=== PATIENT | female | born 1965 | race Caucasian/White ===

== ENCOUNTER 2017-01-22 09:09 | Emergency (ER) | payer OTHER ==
--- NOTE | 2017-01-22 10:41 | DIAGNOSTIC IMAGING REPORT ---
PROCEDURE: XR KNEE 4 VIEWS - LEFT INDICATION: TRAUMA/INJURY TECHNIQUE: Four views. COMPARISON: None. FINDINGS: No fracture or dislocation. There is chondrocalcinosis. IMPRESSION: 1. No fracture or dislocation. 2. Chondrocalcinosis.
--- NOTE | 2017-01-22 10:43 | ED NURSING NOTES ---
Clinical Report - Nurses [facility] [address] [place] [address] 01/22/2017 9:08 [id number] TRIAGE Triage time 09:10. Acuity: LEVEL 3. Chief Complaint: INJURY TO LEFT KNEE. 09:19 01/22/17. SEPSIS SCREEN: Sepsis Screen. Negative (no infection suspected/documented). INDY COMA SCORE: [place] Coma Scale: 15- eyes open spontaneously (4); best verbal response- oriented x 4 (5); best motor response- obeys commands (6). --09:19 Rodo Rubalcava R.N. 09:12 01/22/17. BP: 138/82. HR: 83. RR: 20. O2 saturation: 98% on room air. Temp: 98.1 F (oral). Pain level now: 09/08. --09:19 Rodo Rubalcava R.N. Weight: 72.5 kg stated. Height/Length: 67 inches Per Patient. BMI: 25.1. --09:17 Rodo Rubalcava R.N. Medications Synthroid Oral. --09:13 Rodo Rubalcava R.N. OxyCONTIN Oral. --09:13 Rodo Rubalcava R.N. OxyCODONE HCl Oral. --09:13 Rodo Rubalcava R.N. Allergies No Known Drug Allergy. --09:15 Rodo Rubalcava R.N. History Arrived by EMS. Historian: EMS and patient. This occurred yesterday (Fell and twisted her left knee yesterday while raking leaves.). 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 SOCIAL HX: Heavy tobacco smoker (cigarette)- 1 pack per day. History of occasional drug use: marijuana. No alcohol use. ABUSE ASSESSMENT: No report of abuse. --09:19 Rodo Rubalcava R.N. PROBLEMS: Chronic back pain. --09:15 Rodo Rubalcava R.N. ADDITIONAL SURGERIES: Back Surgery. --09:15 Rodo Rubalcava R.N. Interventions ID band on patient. To treatment room. --09:19 Rodo Rubalcava R.N. PHYSICAL ASSESSMENT 09:23 01/22/17. To room via stretcher. GENERAL / NEURO / PSYCH: Oriented X 4. Alert. Appears in pain. EXTREMITIES: Extremities do not exhibit normal ROM. Capillary refill is less than 2 seconds in the extremities. Extremity pulses are within normal limits. Abnormal gait. She was unable to bear weight. Neuro-vascular status intact to the extremity. Left knee: tenderness and swelling. Limited ROM. SKIN: Skin intact. Skin is warm and dry. --09:23 Rodo Rubalcava R.N. NURSING PROGRESS NOTES 09:24 01/22/17. Cold pack applied. Extremity elevated. Neuro-vascular extremity check distal to injury: pulses intact, moderate edema present, capillary refill <2 seconds and sensation intact. Patient gowned. Reassurance given. Two patient identifiers checked. Call light placed in reach. Bed placed in lowest position. Brakes of bed on. Patient ready for evaluation- chart flagged. --09:24 Rodo Rubalcava R.N. ( Patient requested commode to urinate and only wanted daughters help with this). --09:59 Migdalia Guerra R.N. 10:07 01/22/2017 Toradol (Ketorolac Tromethamine) IM 60 mg given. Given in the right deltoid. Allergies verified and confirmed 5 rights. --10:13 Migdalia Guerra R.N. 10:08 01/22/2017 Dilaudid (HYDROmorphone HCl PF) IM 1 mg given. Given in the left deltoid. Allergies verified, confirmed 5 rights and sedative warning given to the patient. --10:13 Migdalia Guerra R.N. 10:14 01/22/17. Patient transported to radiology by stretcher with tech. (10:13 Jan 22 2017). --10:14 Migdalia Guerra R.N. Patient returned from radiology by stretcher. (10:30 Jan 22 2017). --10:31 Migdalia Guerra R.N. DISPOSITION / DISCHARGE <<STRICKEN ENTRY-- 11:03 01/22/2017 Toradol IM Response: pain is improving. Symptoms have improved the patient feels better. --11:03 Migdalia Guerra R.N. --END STRIKE>> Other. --11:04 Migdalia Guerra R.N. 11:03 01/22/2017 Dilaudid IM Response: no adverse reaction pain is improving. Symptoms have improved the patient feels better. --11:03 Migdalia Guerra R.N. 11:03 01/22/2017 Toradol IM Response: no adverse reaction pain is improving. Symptoms have improved the patient feels better. --11:04 Migdalia Guerra R.N. 11:07 01/22/17. Condition at departure: improved. No learning barriers present. Discharge instructions provided and reviewed with the patient (roommate). Reviewed crutch walking instructions (Immobilizer left knee and ice). Activity restrictions reviewed (may bear weight as tolerated). Patient verbalized understanding. Written instructions provided in Senegalese. ( Gino and Hawa placed Left knee Immobilizer per orders. Patient given crutches). The patient was discharged by the physician. She was discharged home and accompanied by cylinder press operator. She left the Emergency Department in a wheelchair on crutches and via private vehicle. Home Coordinator driving. --11:07 Migdalia Guerra R.N. 10:58 01/22/17. BP: 121/71 (regular adult cuff) taken on the left arm, while sitting. HR: 78 (regular). RR: 18 (regular). O2 saturation: 100% on room air. Temp: 98.3 F (oral). Pain level now: 07/09. --11:07 Migdalia Guerra R.N. Departure time: 11:10 Jan 22 2017. --11:12 Migdalia Guerra R.N. Locked/Released at 01/22/2017 11:42 by Migdalia Guerra R.N.
--- NOTE | 2017-01-22 10:43 | ED ORDER SUMMARY ---
..... Patient: MADALYN CHOE OrderSheet [facility] VisitID: [id number] [address] [place] [address] 51y, F Registration Date/Time: 01/22/2017 ORDER SHEET Weight: 72.5 kg (stated) Allergies: No Known Drug Allergy GENERAL ORDERS: Knee 4V Left Urgent (09:57 01/22/2017 Blanca LANDON) (Ack 9:59 Lashonda) (10:27 Lashonda) Knee Immobilizer (10:40 01/22/2017 Blanca LANDON) (11:03 Yancy R.N.) Crutches (10:40 01/22/2017 Blanca LANDON) (11:03 Yancy R.N.) MEDICATION ORDERS: Toradol IM 60 mg (NOW) (09:56 01/22/2017 Blanca LANDON) (10:13 Krzysztofs R.N.) Dilaudid IM 1 mg (HIGH ALERT MEDICATION, NOW) (09:56 01/22/2017 Blanca LANDON) (10:13 Yancy R.N.) IV FLUIDS: ORDER SHEET NOTES: [Electronically signed by Migdalia Guerra R.N. (11:42 01/22/2017)] [Electronically signed by Charisma Reid MD (06:21 01/26/2017)] [Electronically locked/signed by Migdalia Guerra R.N. (11:42 01/22/2017)]
--- NOTE | 2017-01-22 10:43 | ED ORDER SUMMARY ---
..... Patient: MADALYN CHOE OrderSheet [facility] VisitID: [id number] [address] [place] [address] 51y, F Registration Date/Time: 01/22/2017 ORDER SHEET Weight: 72.5 kg (stated) Allergies: No Known Drug Allergy GENERAL ORDERS: Knee 4V Left Urgent (09:57 01/22/2017 Blanca LANDON) (Ack 9:59 Lashonda) (10:27 Lashonda) Knee Immobilizer (10:40 01/22/2017 Blanca LANDON) (11:03 Yancy R.N.) Crutches (10:40 01/22/2017 Blanca LANDON) (11:03 Yancy R.N.) MEDICATION ORDERS: Toradol IM 60 mg (NOW) (09:56 01/22/2017 Blanca LANDON) (10:13 Krzysztofs R.N.) Dilaudid IM 1 mg (HIGH ALERT MEDICATION, NOW) (09:56 01/22/2017 Blanca LANDON) (10:13 Yancy R.N.) IV FLUIDS: ORDER SHEET NOTES: [Electronically signed by Migdalia Guerra R.N. (11:42 01/22/2017)] [Electronically signed by Charisma Reid MD (06:21 01/26/2017)] [Electronically locked/signed by Migdalia Guerra R.N. (11:42 01/22/2017)]
--- NOTE | 2017-01-22 10:43 | ED NURSING NOTES ---
Clinical Report - Nurses [facility] [address] [place] [address] 01/22/2017 9:08 [id number] Triage time 09:10. Acuity: LEVEL 3. Chief Complaint: INJURY TO LEFT KNEE. 09:19 01/22/17. SEPSIS SCREEN: Sepsis Screen. Negative (no infection suspected/documented). INDY COMA SCORE: [place] Coma Scale: 15- eyes open spontaneously (4); best verbal response- oriented x 4 (5); best motor response- obeys commands (6). --09:19 Rodo Rubalcava R.N. 09:12 01/22/17. BP: 138/82. HR: 83. RR: 20. O2 saturation: 98% on room air. Temp: 98.1 F (oral). Pain level now: 09/08. --09:19 Rodo Rubalcava R.N. Weight: 72.5 kg stated. Height/Length: 67 inches Per Patient. BMI: 25.1. --09:17 Rodo Rubalcava R.N. Medications Synthroid Oral. --09:13 Rodo Rubalcava R.N. OxyCONTIN Oral. --09:13 Rodo Rubalcava R.N. OxyCODONE HCl Oral. --09:13 Rodo Rubaclava R.N. Allergies No Known Drug Allergy. --09:15 Rodo Rubalcava R.N. History Arrived by EMS. Historian: EMS and patient. This occurred yesterday (Fell and twisted her left knee yesterday while raking leaves.). 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 SOCIAL HX: Heavy tobacco smoker (cigarette)- 1 pack per day. History of occasional drug use: marijuana. No alcohol use. ABUSE ASSESSMENT: No report of abuse. --09:19 Rodo Rubalcava R.N. PROBLEMS: Chronic back pain. --09:15 Rodo Rubalcava R.N. ADDITIONAL SURGERIES: Back Surgery. --09:15 Rodo Rubalcava R.N. Interventions ID band on patient. To treatment room. --09:19 Rodo Rubalcava R.N. PHYSICAL ASSESSMENT 09:23 01/22/17. To room via stretcher. GENERAL / NEURO / PSYCH: Oriented X 4. Alert. Appears in pain. EXTREMITIES: Extremities do not exhibit normal ROM. Capillary refill is less than 2 seconds in the extremities. Extremity pulses are within normal limits. Abnormal gait. She was unable to bear weight. Neuro-vascular status intact to the extremity. Left knee: tenderness and swelling. Limited ROM. SKIN: Skin intact. Skin is warm and dry. --09:23 Rodo Rubalcava R.N. NURSING PROGRESS NOTES 09:24 01/22/17. Cold pack applied. Extremity elevated. Neuro-vascular extremity check distal to injury: pulses intact, moderate edema present, capillary refill <2 seconds and sensation intact. Patient gowned. Reassurance given. Two patient identifiers checked. Call light placed in reach. Bed placed in lowest position. Brakes of bed on. Patient ready for evaluation- chart flagged. --09:24 Rodo Rubalcava R.N. ( Patient requested commode to urinate and only wanted daughters help with this). --09:59 Migdalia Guerra R.N. 10:07 01/22/2017 Toradol (Ketorolac Tromethamine) IM 60 mg given. Given in the right deltoid. Allergies verified and confirmed 5 rights. --10:13 Migdalia Guerra R.N. 10:08 01/22/2017 Dilaudid (HYDROmorphone HCl PF) IM 1 mg given. Given in the left deltoid. Allergies verified, confirmed 5 rights and sedative warning given to the patient. --10:13 Migdalia Guerra R.N. 10:14 01/22/17. Patient transported to radiology by stretcher with tech. (10:13 Jan 22 2017). --10:14 Migdalia Guerra R.N. Patient returned from radiology by stretcher. (10:30 Jan 22 2017). --10:31 Migdalia Guerra R.N. DISPOSITION / DISCHARGE <<STRICKEN ENTRY-- 11:03 01/22/2017 Toradol IM Response: pain is improving. Symptoms have improved the patient feels better. --11:03 Migdalia Guerra R.N. --END STRIKE>> Other. --11:04 Migdalia Guerra R.N. 11:03 01/22/2017 Dilaudid IM Response: no adverse reaction pain is improving. Symptoms have improved the patient feels better. --11:03 Migdalia Guerra R.N. 11:03 01/22/2017 Toradol IM Response: no adverse reaction pain is improving. Symptoms have improved the patient feels better. --11:04 Migdalia Guerra R.N. 11:07 01/22/17. Condition at departure: improved. No learning barriers present. Discharge instructions provided and reviewed with the patient (roommate). Reviewed crutch walking instructions (Immobilizer left knee and ice). Activity restrictions reviewed (may bear weight as tolerated). Patient verbalized understanding. Written instructions provided in [place]an. ( Gino and Hawa placed Left knee Immobilizer per orders. Patient given crutches). The patient was discharged by the physician. She was discharged home and accompanied by ip architect. She left the Emergency Department in a wheelchair on crutches and via private vehicle. Delivery Director driving. --11:07 Migdalia Guerra R.N. 10:58 01/22/17. BP: 121/71 (regular adult cuff) taken on the left arm, while sitting. HR: 78 (regular). RR: 18 (regular). O2 saturation: 100% on room air. Temp: 98.3 F (oral). Pain level now: 07/09. --11:07 Migdalia Guerra R.N. Departure time: 11:10 Jan 22 2017. --11:12 Migdalia Guerra R.N. Locked/Released at 01/22/2017 11:42 by Migdalia Guerra R.N.
--- NOTE | 2017-01-22 10:43 | ED CLINICAL REPORT ---
Clinical Report - Physicians/Mid Levels [facility] [address] [place] [address] 01/22/2017 9:08 Patient: MADALYN CHOE Time Seen: 09:34. Arrived- By ambulance. Historian- patient and EMS personnel. HISTORY OF PRESENT ILLNESS Location of injuries- left knee. Chief Complaint: FALL. The injury occurred yesterday. Fell (Pt slipped on wet leaves and twisted her L knee as she fell. She denies feeling a "pop" or "crack". Pt was ambulatory on the knee yesterday, though she states it was sore, but states that after sleeping all night, she could hardly walk this morning.). Occurred at home. The patient complains of moderate pain. No blow to the head, neck pain, loss of consciousness or seizure. Not dazed. REVIEW OF SYSTEMS The patient complains of pain on weight bearing. No numbness, dizziness, loss of vision, hearing loss or chest pain. No difficulty breathing, weakness, headache, nausea or abdominal pain. No laceration, fever, vomiting or urinary problems. All systems otherwise negative, except as recorded above. PAST HISTORY Problems: Chronic back pain. Additional Surgeries: Back Surgery. Medications: OxyCODONE HCl Oral. OxyCONTIN Oral. Synthroid Oral. Allergies: No Known Drug Allergy. SOCIAL HISTORY Current every day smoker. History of drug use: marijuana. No alcohol use. ADDITIONAL NOTES The nursing notes have been reviewed. PHYSICAL EXAM Vital Signs: 01/22/2017 09:12 BP: 138/82. HR: 83. RR: 20. O2 saturation: 98%. Temp: 98.1 F. Pain level now: 09/08. Have been reviewed. Appearance: Alert. Oriented X3. No acute distress. (Pt becomes tearful when knee is examined.). Head: (Atraumatic.). Eyes: Pupils equal, round and reactive to light. EOM intact. ENT: No dental injury. Neck: No decreased ROM in the neck. CVS: Pulses normal. Respiratory: No respiratory distress. Back: ROM normal. Skin: Skin intact. Skin warm and dry. Normal skin color. Normal skin turgor. Extremities: Pelvis stable. Left knee: moderate tenderness and mild swelling located in the suprapatellar area, posterior knee and medial joint line. Limited ROM secondary to pain (diminished flexion). Neurovascular intact distally. No ligamentous laxity present. No joint effusion. No erythema, laceration, abrasion, ecchymosis or puncture wound. No foreign body or deformity. Neuro: Oriented X 3. No motor deficit. No sensory deficit. LABS, X-RAYS, AND EKG Lt Knee X-ray: No fracture. Normal alignment. No bony lesion, air in the soft tissue or foreign body. Soft tissues normal. Joint spaces normal. Views: AP, lateral and oblique. Technique: good. The X-rays were independently viewed by me, interpreted by the radiologist and contemporaneously by me and discussed with the radiologist. Prior films were not available for comparison. Pulse Oximetry: 01/22/2017 09:12 O2 saturation: 98%. (FIO2 - room air). Interpretation: normal. PROGRESS AND PROCEDURES Course of Care: Pt was given IM Toradol and Dilaudid for symptomatic relief, and was worked up with an x-ray series, which was negative. No emergent condition identified. Pt was given crutches and a knee immobilizer for symptomatic management. Patient counseled in person regarding the patient's stable condition, test results, diagnosis and need for follow-up. Concerns were addressed. Old medical records reviewed. Disposition: Discharged. Condition: stable and improved. CLINICAL IMPRESSION Sprain of the left knee. INSTRUCTIONS Apply ice for 20 minutes three times a day as needed and until better. Don't apply ice directly to skin and don't use while asleep. Elevate affected areas above chest level as needed and until better. Wear canvas splint as needed and until better. You may walk and bear weight as tolerated. (Your x-rays show mild arthritis, but no breaks or dislocations. The bones are all lined up as they should be. Please wear the knee brace and use the crutches, as needed, until you are feeling better. If you have not noticed any improvement in the next 2-3 weeks, you should speak with your primary doctor about having an MRI done.). Warnings: SEDATIVE MEDICATION: You were given sedative medication during your visit. Do not drive or operate dangerous machinery for 6 hours. GENERAL WARNINGS: Return or contact your physician immediately if your condition worsens or changes unexpectedly, if not improving as expected, or if other problems arise. Your Current Medications: CONTINUE TAKING THE FOLLOWING MEDICATIONS: OxyCODONE HCl Oral. OxyCONTIN Oral. Synthroid Oral. Follow-up: Follow up with your doctor in two weeks if not better. Understanding of the discharge instructions verbalized by patient and family. (Electronically signed by Charisma Reid MD 01/26/2017 6:21)
--- NOTE | 2017-01-26 06:21 | ED DISCHARGE INSTRUCTIONS ---
Patient: MADALYN CHOE General Instructions Located Within [facility] VisitID: [id number] [address] [place] [address] 51y, F Registration Date/Time: 01/22/2017 Sprain of the left knee. INSTRUCTIONS Apply ice for 20 minutes three times a day as needed and until better. Don't apply ice directly to skin and don't use while asleep. Elevate affected areas above chest level as needed and until better. Wear canvas splint as needed and until better. You may walk and bear weight as tolerated. (Your x-rays show mild arthritis, but no breaks or dislocations. The bones are all lined up as they should be. Please wear the knee brace and use the crutches, as needed, until you are feeling better. If you have not noticed any improvement in the next 2-3 weeks, you should speak with your primary doctor about having an MRI done.). Warnings: SEDATIVE MEDICATION: You were given sedative medication during your visit. Do not drive or operate dangerous machinery for 6 hours. GENERAL WARNINGS: Return or contact your physician immediately if your condition worsens or changes unexpectedly, if not improving as expected, or if other problems arise. Your Current Medications: CONTINUE TAKING THE FOLLOWING MEDICATIONS: OxyCODONE HCl Oral. OxyCONTIN Oral. Synthroid Oral. Follow-up: Follow up with your doctor in two weeks if not better. Understanding of the discharge instructions verbalized by patient and family. ADDITIONAL INFORMATION Sprain, Knee A sprain is an injury to the ligaments or capsule that holds a joint together. There are no broken bones. Most sprains take three to six weeks to heal. If the ligament is completely torn (severe sprain), it can take months to recover from. Most knee sprains are treated with a splint, knee immobilizer or elastic wrap for support. Severe sprains may require surgery. Home care The following guidelines will help you care for your injury at home: Stay off the injured leg as much as possible until you can walk on it without pain. If you have a lot of pain with walking, crutches or a walker may be prescribed. (These can be rented or purchased at many pharmacies and surgical or orthopedic supply stores). Follow your doctor's advice regarding when to begin bearing weight on that leg. Keep your leg elevated to reduce pain and swelling. When sleeping, place a pillow under the injured leg. When sitting, support the injured leg so it is level with your waist. This is very important during the first 48 hours. Apply an ice pack (ice cubes in a plastic bag, wrapped in a towel) over the injured area for 20 minutes every 12 hours the first day. You can place the ice pack directly over the splint. If a Velcro knee immobilizer was applied, you can open this to apply the ice pack directly to the knee. Continue with ice packs 34 times a day for the next two days, then as needed for the relief of pain and swelling. You may use acetaminophen or ibuprofen to control pain, unless another pain medicine was prescribed. If you have chronic liver or kidney disease or ever had a stomach ulcer or GI bleeding, talk with your doctor before using these medicines. If you were given a splint, keep it completely dry at all times. Bathe with your splint out of the water, protected with a large plastic bag, rubber-banded at the top end. If a fiberglass splint gets wet, you can dry it with a hair-dryer. If you have a Velcro knee immobilizer, you can remove this to bathe, unless told otherwise. Follow-up care Follow up with your doctor as advised. Any X-rays you had today dont show any broken bones, breaks, or fractures. Sometimes fractures dont show up on the first X-ray. Bruises and sprains can sometimes hurt as much as a fracture. These injuries can take time to heal completely. If your symptoms dont improve or they get worse, talk with your doctor. You may need a repeat X-ray. When to seek medical care Get prompt medical attention if any of the following occur: The plaster cast or splint becomes wet or soft The fiberglass cast or splint remains wet for more than 24 hours Pain or swelling increases Toes become cold, blue, numb or tingly You have been given the following additional information: Knee Sprain You may walk and bear weight as tolerated. (Electronically signed by Charimsa Reid MD 01/26/2017 6:21)
--- NOTE | 2017-01-26 06:21 | ED MED RECONCILIATION SUMMARY ---
Patient: MADALYN CHOE Medication Reconciliation Report [facility] VisitID: [id number] [address] [place] [address] 51y, F Registration Date/Time: 01/22/2017 Weight: 72.5 kg Height/Length: 67 in. BMI: 25.1 ALLERGIES: No Known Drug Allergy The patient's Home Medications are listed below: CONTINUE TAKING THE FOLLOWING MEDICATIONS: OxyCODONE HCl Oral OxyCONTIN Oral Synthroid Oral The source(s) of the original Home Medication information: Not obtained. The following Medications were given to the patient in the Emergency Department: Toradol [IM] IM 60 mg, administered: 01/22/2017 10:07:00 AM Dilaudid [IM] IM 1 mg, administered: 01/22/2017 10:08:00 AM The following Medications were prescribed to the patient: None.
--- NOTE | 2017-01-26 06:21 | ED MAR SUMMARY ---
..... Medication Administration Record [facility] [address] [place] [address] Patient: MADALYN CHOE Visit ID: [id number] 51y, F Weight: 72.5 kg Height/Length: 67 in BMI: 25.1 ALLERGIES: No Known Drug Allergy Given 10:01/22/2017 Migdalia Guerra RBreannaNBreanna Medication Administered: TORADOL [IM] (KETOROLAC TROMETHAMINE), Dose: 60 mg IM. Medication Ordered: Toradol IM 60 mg (NOW). Given 10:01/22/2017 Migdalia Guerra, R.N. Medication Administered: DILAUDID [IM] (HYDROMORPHONE HCL PF), Dose: 1 mg IM. Medication Ordered: Dilaudid IM 1 mg (HIGH ALERT MEDICATION, NOW).
--- NOTE | 2017-01-26 06:21 | ED MED RECONCILIATION SUMMARY ---
Patient: MADALYN CHOE Medication Reconciliation Report [facility] VisitID: [id number] [address] [place] [address] 51y, F Registration Date/Time: 01/22/2017 Weight: 72.5 kg Height/Length: 67 in. BMI: 25.1 ALLERGIES: No Known Drug Allergy The patient's Home Medications are listed below: CONTINUE TAKING THE FOLLOWING MEDICATIONS: OxyCODONE HCl Oral OxyCONTIN Oral Synthroid Oral The source(s) of the original Home Medication information: Not obtained. The following Medications were given to the patient in the Emergency Department: Toradol [IM] IM 60 mg, administered: 01/22/2017 10:07:00 AM Dilaudid [IM] IM 1 mg, administered: 01/22/2017 10:08:00 AM The following Medications were prescribed to the patient: None.
--- NOTE | 2017-01-26 06:21 | ED MAR SUMMARY ---
..... Medication Administration Record [facility] [address] [place] [address] Patient: MADALYN CHOE Visit ID: [id number] 51y, F Weight: 72.5 kg Height/Length: 67 in BMI: 25.1 ALLERGIES: No Known Drug Allergy Given 10:01/22/2017 Migdalia Guerra RBreannaNBreanna Medication Administered: TORADOL [IM] (KETOROLAC TROMETHAMINE), Dose: 60 mg IM. Medication Ordered: Toradol IM 60 mg (NOW). Given 10:01/22/2017 Migdalia Guerra, R.N. Medication Administered: DILAUDID [IM] (HYDROMORPHONE HCL PF), Dose: 1 mg IM. Medication Ordered: Dilaudid IM 1 mg (HIGH ALERT MEDICATION, NOW).
== END 2017-01-22 11:10 | disposition home or self-care (01) ==
LOC: EDBD 09:09 → ED SRH 09:09
DX: S83.92XA Sprain of unspecified site of left knee, initial encounter (principal); W01.0XXA Fall on same level from slipping, tripping and stumbling without subsequent striking against object, initial encounter; Y93.H1 Activity, digging, shoveling and raking; Y92.9 Unspecified place or not applicable; Y99.8 Other external cause status; F17.210 Nicotine dependence, cigarettes, uncomplicated